=== PATIENT | female | born 1990 | race Two or more races ===

== ENCOUNTER 2017-01-25 23:26 | Emergency (ER) | payer MEDICAID ==
[2017-01-25 23:21] LABS: URINE APPEARANCE CLEAR; URINE BILIRUBIN NEG (NEG); URINE BLOOD 3+ (NEG); URINE COLOR YELLOW; URINE GLUCOSE NEG (NEG); URINE KETONE TRACE (NEG); URINE LEUKOCYTE ESTERASE TRACE (NEG); URINE NITRATE NEG (NEG); URINE PROTEIN 1+ (NEG); URINE SPECIFIC GRAVITY 1.036 (1.003-1.035)
[2017-01-25 23:23] LABS: CULTURE INDICATED? NO; URBCS1 AUWI INNUM /[HPF] (0-2); URINE BACTERIA AUWI NEG (NEGATIVE); URINE SQUAMOUS EPITHELIAL CELL NONE SEEN /[HPF]; UWBCS1 AUWI 0-2 (0-5)
== END 2017-01-26 00:20 | disposition home or self-care (01) ==
LOC: CFTX 23:26
PROVIDERS: Nurse Practitioner Family
DX: N89.8 Other specified noninflammatory disorders of vagina (principal); F41.9 Anxiety disorder, unspecified
CPT/HCPCS: 81003; 84703; 99283

== ENCOUNTER 2017-06-01 22:01 | Emergency (ER) | payer MEDICAID ==
[~2017-06-01] VITALS: Ht 162.6 cm; Wt 76.7 kg
== END 2017-06-02 | disposition home or self-care (01) ==
LOC: CFTX 22:01 → CED 22:01 → CFTX 22:10 → CED 23:59 → CFTX 06-02
DX: O99.89 Other specified diseases and conditions complicating pregnancy, childbirth and the puerperium (principal); R51 Headache; M54.5 Low back pain
CPT/HCPCS: 84703; 99283